=== PATIENT | male | born 1945 | race African-American/Black ===

== ENCOUNTER 2016-08-24 16:53 | Inpatient (IN) | payer OTHER ==
[~2016-08-24] VITALS: Ht 170.2 cm; Wt 65.1 kg
[2016-08-24 20:08] LABS: BASO % 1 % (0-3); EOS % 0 % (0-3); LYMPH % 22 % (24-48); MEAN CORPUSCULAR HEMOGLOBIN 26 pg (25-35); MEAN CORPUSCULAR HGB CONC 32 g/dL (31-37); MEAN CORPUSCULAR VOLUME 83 fL (79-100); MONO % 11 % (0-9); NEUT % 67 % (31-73); PLATELET COUNT 263 x10^3/uL (140-400); WHITE BLOOD COUNT 4.6 x10^3/uL (4.0-11.0)
[2016-08-24 20:15] LABS: HEMATOCRIT 16.6 % (39.0-53.0); HEMOGLOBIN 5.3 g/dL (13.0-17.5)
[2016-08-24 20:19] LABS: CALCIUM 8.3 mg/dL (8.5-10.1); CREATININE 8.2 mg/dL (0.7-1.3); GFR 7.8; POTASSIUM 3.7 mmol/L (3.5-5.1)
[2016-08-24 20:33] LABS: NEG OBC FOB NEG; POS OBC FOB POS
--- NOTE | 2016-08-24 20:38 | PHYS DOC ---
Past Medical History Past Medical History: CVA, Diabetes-Type II, Hypothyroid, Stroke Additional Past Medical Histor: ESRD on HD Past Surgical History: Other Additional Past Surgical Histo: HD PORT PLACEMENT, L ARM HD SHUNT Additional Information: 1 PACK PER DAY Alcohol Use: None Drug Use: None Adult General Chief Complaint Chief Complaint: ABNORMAL LABS HPI HPI Patient is a 71 year old male who presents for evaluation of low hemoglobin of 5.3. He had dialysis yesterday with routine lab draw and was called today. He notes in the past few days he has mild generalized fatigue and dyspnea on exertion. He denies lightheadedness, chest pain, abdominal pain, dysuria, hematuria, rectal bleeding, dark stools, nausea or vomiting, fever or chills, rash, bruising or bleeding. Review of Systems Review of Systems Constitutional: Denies fever or chills [] Eyes: Denies change in visual acuity, redness, or eye pain [] HENT: Denies nasal congestion or sore throat [] Respiratory: Denies cough or shortness of breath [] Cardiovascular: No additional information not addressed in HPI [] GI: Denies abdominal pain, nausea, vomiting, bloody stools or diarrhea [] : Denies dysuria or hematuria [] Musculoskeletal: Denies back pain or joint pain [] Integument: Denies rash or skin lesions [] Neurologic: Denies headache, focal weakness or sensory changes [] Endocrine: Denies polyuria or polydipsia [] Allergies Allergies Allergies Coded Allergies Type Severity Reaction Last Updated Verified No Known Drug Allergies 08/24/16 No Physical Exam Physical Exam Constitutional: Well developed, well nourished, no acute distress, non-toxic appearance. [] HENT: Normocephalic, atraumatic, bilateral external ears normal, oropharynx moist, no oral exudates, nose normal. [] Eyes: PERRLA, EOMI. [] Neck: Normal range of motion, supple. [] Cardiovascular:Heart rate regular rhythm [] Lungs & Thorax: Bilateral breath sounds clear to auscultation. Hemodialysis catheter to right upper chest with no signs of bleeding [] Abdomen: Bowel sounds normal, soft, no tenderness. Rectal exam with brown stool in vault [] Skin: Warm, dry, no erythema, no rash. [] Back: Normal range of motion. [] Extremities: No tenderness, ROM intact, no edema. Right upper extremity graft active [] Neurologic: Alert and oriented X 3, normal motor function, normal sensory function, no focal deficits noted. [] Psychologic: Affect normal, judgement normal, mood normal. [] Current Patient Data Vital Signs Vital Signs Date Time Temp Pulse Resp B/P Pulse Ox O2 Delivery O2 Flow Rate FiO2 08/24/16 18:51 98.5 100 21 141/65 96 Room Air 98.5 Lab Values Laboratory Tests Test 08/24/16 19:59 White Blood Count 4.6x10^3/uL (4.0-11.0) Red Blood Count 2.00x10^6/uL (4.30-5.70) L Hemoglobin 5.3g/dL (13.0-17.5) *L Hematocrit 16.6% (39.0-53.0) *L Mean Corpuscular Volume 83fL (79-100) Mean Corpuscular Hemoglobin 26pg (25-35) Mean Corpuscular Hemoglobin Concent 32g/dL (31-37) Red Cell Distribution Width 18.0% (11.5-14.5) H Platelet Count 263x10^3/uL (140-400) Neutrophils (%) (Auto) 67% (31-73) Lymphocytes (%) (Auto) 22% (24-48) L Monocytes (%) (Auto) 11% (0-9) H Eosinophils (%) (Auto) 0% (0-3) Basophils (%) (Auto) 1% (0-3) Neutrophils # (Auto) 3.1x10^3uL (1.8-7.7) Lymphocytes # (Auto) 1.0x10^3/uL (1.0-4.8) Monocytes # (Auto) 0.5x10^3/uL (0.0-1.1) Eosinophils # (Auto) 0.0x10^3/uL (0.0-0.7) Basophils # (Auto) 0.0x10^3/uL (0.0-0.2) Sodium Level 139mmol/L (136-145) Potassium Level 3.7mmol/L (3.5-5.1) Chloride Level 100mmol/L (98-107) Carbon Dioxide Level 30mmol/L (21-32) Anion Gap 9 (6-14) Blood Urea Nitrogen 28mg/dL (8-26) H Creatinine 8.2mg/dL (0.7-1.3) H Estimated GFR (Cockcroft-Gault) 7.8 Glucose Level 281mg/dL (70-99) H Calcium Level 8.3mg/dL (8.5-10.1) L Laboratory Tests 08/24/16 19:59 Laboratory Tests 08/24/16 19:59 Course & Med Decision Making Course & Med Decision Making Pertinent Labs and Imaging studies reviewed. (See chart for details) He has symptomatic anemia and will be admitted for blood transfusion. Discussed case with Dr. Olsen, for Dr. Villa, who agrees to admit. Discussed case with Dr. Tripp, nephrology, who agrees with transfusion. Dragon Disclaimer Dragon Disclaimer This electronic medical record was generated, in whole or in part, using a voice recognition dictation system. Departure Departure Impression: Primary Impression: Anemia Additional Impression: ESRD (end stage renal disease) on dialysis Disposition: ADMITTED INPATIENT Condition: STABLE Referrals: GILSON VILLA (PCP) Problem Qualifiers Primary Impression: Anemia Anemia type: unspecified type Qualified Code: D64.9 - Anemia, unspecified Gloria HDZ MD Aug 24, 2016 20:38
[2016-08-24] MEDS ORDERED: ACETAMINOPHEN 325 MG TABLET. PO PRN (20:45)
[2016-08-24] MEDS ORDERED: ONDANSETRON PF 4 MG/2 ML VIAL. IV PRN (20:45)
[2016-08-24] MEDS ORDERED: FUROSEMIDE 20 MG/2 ML VIAL IVP ONE (21:00)
--- NOTE | 2016-08-24 21:18 | ACF ---
Admission Forms Criteria ANEMIA, IRON DEFICIENCY OR UNSPECIFIED Clinical Indications for Inpatient Care (Place 'X' for any and all applicable criteria): Admission is indicated for ANY ONE of the following(1)(2)(3)(4)(5)(6)(7): [X] I. Inpatient admission required rather than observation care (Also use Anemia, Iron Deficiency or Unspecified: Observation Care guideline as appropriate) because of ANY ONE of the following: [] a) Hemodynamic instability that is severe or persistent [] b) Active bleeding that cannot be rapidly controlled [] c) CVS symptoms (i.e., dyspnea, chest pain, heart failure) that are severe or persistent [] d) Neurologic symptoms (i.e., cognitive impairment, recurrent syncope or near syncope) that are severe or persistent [] e) Cardiac arrhythmias of immediate concern [] f) Acute peripheral ischemia (e.g., pulseless, cool, mottled, or cyanotic extremity) [] g) High-risk low platelet count [] h) Acute renal failure [] i) Ongoing transfusion for blood loss (greater than 2 units) [] j) IV fluid to replace significant ongoing (eg, >24 hours) losses (> 3 L/m2 per day) [] k) Pulmonary artery catheter monitoring [] l) Supplemental oxygen or respiratory treatments for over 24 hours that are performable only in acute inpatient setting [] m) Immediate inpatient surgery [X] n) Other condition, treatment or monitoring requiring inpatient admission [] II Active massive hemorrhage [] III. Active hemolysis with rapidly progressive anemia [A](6) Extended stay beyond goal length of stay may be needed for (17)(18) []a) Diagnosed cause of anemia requiring longer hospitalization (eg, active GI bleeding, immune hemolysis requiring electrophoresis, complications of malignancy requiring acute care []b) Continued emergent anemia indicators (23) []c) Transfusion reactions []d) Associated leukopenia or thrombocytopenia needing inpatient care []e) Active comorbidities (eg, renal failure, heart failure) The original [employer] [facility] Care Guidelines content created by [employer] has been revised. The portions of the content which have been revised are identified through the use of italic text or in bold. [facility] Guidelines has neither reviewed nor approved the modified material. All other unmodified content is copyright [employer] Care Guidelines. Please see references footnoted in the original [facility] edition 2016 Admission Criteria Met?: Yes GALINDO HUTSON Aug 24, 2016 21:18
[2016-08-24 23:00] VITALS: BP 133/58
[2016-08-24 23:50] VITALS: BP 133/58
[2016-08-25] VITALS (12 sets, daily range): BP systolic 106–134; BP diastolic 38–62
[2016-08-25] MEDS ORDERED: LEVO125T5 PO (01:51)
[2016-08-25] MEDS ORDERED: CINA30TA MT (10:52)
[2016-08-25] MEDS ORDERED: HYDR25TA9 MT (10:52)
--- NOTE | 2016-08-25 11:01 | PDOC1 ---
REBECCA HUERTA AREA CLEANER 08/25/16 1101: HISTORY AND PHYSICAL Chief Complaint Chief Complaint This 71 year old male has been admitted with a chief complaint of anemia. He was contacted by Dr. Francis's office to proceed to the [facility] ED for Hgb 5.3. In the ED his Hgb was 5.3 and he was asymptomatic. Stool for OB was negative. His baseline Hgb is ~10. He is admitted and to receive 2 units PRC. Hematology and nephrology has been consulted. spoke to Dr. Olsen w/o present and reported Rk's memory is getting worse. Problem List Problems Medical Problems: (1) Anemia Status: Acute (2) ESRD (end stage renal disease) on dialysis Status: Acute Past Medical History Cardiovascular: HTN, Hyperlipidemia CENTRAL NERVOUS SYSTEM: CVA (on Plavix ) Heme/Onc: Anemia NOS (chronic renal failure ) Renal/: Chronic renal failure (ESRD -HD 3 times weekly ) Endocrine: Diabetes (type II insulin controlled. ), Hypothyroidism, Hyperparathyroidism (secondary ) Past Surgical History PSH temp HD R chest, AV fistula LA Past Family History PFH non contributory Past Social History PSH , + tobacco current, no h/o ETOH or illicit drug use Review of Symptoms Review of Symptoms A 14 point ROS was completed with the following noted as positive: Other systems reviewed and negative. Medications Reviewed and reconciled at admission Allergy Allergies Coded Allergies Type Severity Reaction Last Updated Verified No Known Drug Allergies 08/24/16 No Physical Exam Physical Exam General appearance - alert,well appearing, and in no distress Mental Status - alert, oriented to person, place, and time, affect appropriate to mood Head - normal Chest - clear to auscultation, no wheezes, rales or rhonchi, temporary Dx cath R chest Heart - S1 and S2 normal Abdomen - soft, nontender, nondistended, BS+ Neurological - no acute focal neurological deficit noted Musculoskeletal - no muscular tenderness noted Extremities - no pedal edema, AV fistula LFA Skin - warm and dry VTE Prophylaxis Ordered VTE Prophylaxis Devices: Yes VTE Pharmacological Prophylaxi: No Assessment Labs Laboratory Tests Test 08/24/16 19:59 08/24/16 20:25 08/24/16 21:49 08/25/16 07:40 White Blood Count 4.6x10^3/uL (4.0-11.0) Red Blood Count 2.00x10^6/uL (4.30-5.70) Hemoglobin 5.3g/dL (13.0-17.5) Hematocrit 16.6% (39.0-53.0) Mean Corpuscular Volume 83fL (79-100) Mean Corpuscular Hemoglobin 26pg (25-35) Mean Corpuscular Hemoglobin Concent 32g/dL (31-37) Red Cell Distribution Width 18.0% (11.5-14.5) Platelet Count 263x10^3/uL (140-400) Neutrophils (%) (Auto) 67% (31-73) Lymphocytes (%) (Auto) 22% (24-48) Monocytes (%) (Auto) 11% (0-9) Eosinophils (%) (Auto) 0% (0-3) Basophils (%) (Auto) 1% (0-3) Neutrophils # (Auto) 3.1x10^3uL (1.8-7.7) Lymphocytes # (Auto) 1.0x10^3/uL (1.0-4.8) Monocytes # (Auto) 0.5x10^3/uL (0.0-1.1) Eosinophils # (Auto) 0.0x10^3/uL (0.0-0.7) Basophils # (Auto) 0.0x10^3/uL (0.0-0.2) Sodium Level 139mmol/L (136-145) Potassium Level 3.7mmol/L (3.5-5.1) Chloride Level 100mmol/L (98-107) Carbon Dioxide Level 30mmol/L (21-32) Anion Gap 9 (6-14) Blood Urea Nitrogen 28mg/dL (8-26) Creatinine 8.2mg/dL (0.7-1.3) Estimated GFR (Cockcroft-Gault) 7.8 Glucose Level 281mg/dL (70-99) Calcium Level 8.3mg/dL (8.5-10.1) Stool Occult Blood Negative (NEG) Glucose (Fingerstick) 212mg/dL (70-99) 253mg/dL (70-99) Laboratory Tests Test 08/24/16 19:59 08/24/16 20:25 08/24/16 21:49 08/25/16 07:40 White Blood Count 4.6x10^3/uL (4.0-11.0) Red Blood Count 2.00x10^6/uL (4.30-5.70) Hemoglobin 5.3g/dL (13.0-17.5) Hematocrit 16.6% (39.0-53.0) Mean Corpuscular Volume 83fL (79-100) Mean Corpuscular Hemoglobin 26pg (25-35) Mean Corpuscular Hemoglobin Concent 32g/dL (31-37) Red Cell Distribution Width 18.0% (11.5-14.5) Platelet Count 263x10^3/uL (140-400) Neutrophils (%) (Auto) 67% (31-73) Lymphocytes (%) (Auto) 22% (24-48) Monocytes (%) (Auto) 11% (0-9) Eosinophils (%) (Auto) 0% (0-3) Basophils (%) (Auto) 1% (0-3) Neutrophils # (Auto) 3.1x10^3uL (1.8-7.7) Lymphocytes # (Auto) 1.0x10^3/uL (1.0-4.8) Monocytes # (Auto) 0.5x10^3/uL (0.0-1.1) Eosinophils # (Auto) 0.0x10^3/uL (0.0-0.7) Basophils # (Auto) 0.0x10^3/uL (0.0-0.2) Sodium Level 139mmol/L (136-145) Potassium Level 3.7mmol/L (3.5-5.1) Chloride Level 100mmol/L (98-107) Carbon Dioxide Level 30mmol/L (21-32) Anion Gap 9 (6-14) Blood Urea Nitrogen 28mg/dL (8-26) Creatinine 8.2mg/dL (0.7-1.3) Estimated GFR (Cockcroft-Gault) 7.8 Glucose Level 281mg/dL (70-99) Calcium Level 8.3mg/dL (8.5-10.1) Stool Occult Blood Negative (NEG) Glucose (Fingerstick) 212mg/dL (70-99) 253mg/dL (70-99) Plan Plan IMPRESSION: 1. acute anemia 2. ESRD on HD 3. HTN 4. h/o CVA on Plavix 5. hypothyroid 6. 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 moderate chronic PCL malnutrition PLAN: acute anemia transfuse 2 unit PRC, 20mg Lasix between Admit Hgb 5.3 consult hematology memory -r/t ?anemia ESRD continue HD inpatient consult nephrology DM II does not take doses of insulin ordered by Dr. Bernard regularly, he adjust it based on his BS readings FSBS/SSI BS [id number] insulin since yesterday early Levemir 16u at hs with order to allow patient to decrease dose based on BS Novolog SSI with order to allow patient to decrease dose based on BS HTN continue home meds NSVT 3 beat VT resolved spont occasional PVC DVT/GI prophylaxis KEL ambulatory in room without assistance PPI For more details regarding further plans, please refer to the orders. RENY OLSEN MD 08/25/16 1120: HISTORY AND PHYSICAL Plan Plan The patient was seen and examined by me. Chart reviewed and plan of care formulated. 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 For more details regarding further plans, please refer to the orders. D/w patient and extensively. Patient's memory is getting worse for quite sometime. Check CT Head. REBECCA HUERTA APRN Aug 25, 2016 11:01 RENY OLSEN MD Aug 25, 2016 11:20
[2016-08-25] MEDS ORDERED: FOLI0.8T21 MT (11:04)
[2016-08-25] MEDS ORDERED: CLOP75TA MT (11:04)
[2016-08-25] MEDS ORDERED: AMLO10TA2 MT (11:04)
[2016-08-25] MEDS ORDERED: SEVE800T9 MT (11:04)
[2016-08-25] MEDS ORDERED: PARI1CAP PO (11:09)
[2016-08-25] MEDS ORDERED: HYDR-2868 PO (11:09)
[2016-08-25] MEDS ORDERED: ASPI325T4 PO (11:09)
[2016-08-25] MEDS ORDERED: ATOR40TA59 PO (11:09)
[2016-08-25] MEDS ORDERED: INSU100V13 SQ (11:11)
[2016-08-25] MEDS ORDERED: INSU100C4 SQ (11:11)
[2016-08-25] MEDS ORDERED: INSULIN ASPART 300 UNITS/3 ML INSULN.PEN SQ SCH (11:30)
[2016-08-25] MEDS: SEVELAMER CARBONATE 800 MG TABLET. PO SCH ×2 (12:00→19:32)
[2016-08-25] MEDS ORDERED: ASPIRIN 325 MG TABLET PO SCH ×2 (12:00→21:00)
[2016-08-25] MEDS: HYDROCHLOROTHIAZIDE 25 MG TABLET PO SCH (12:00)
[2016-08-25] MEDS: NICOTINE 21MG PATCH. TD SCH (12:00)
[2016-08-25] MEDS: FOLIC/VIT B COMP W-C (RENAL) TABLET. PO SCH (12:07)
[2016-08-25] MEDS: HYDRALAZINE 25 MG TABLET PO SCH ×2 (12:07→19:32)
[2016-08-25] MEDS: LEVOTHYROXINE 125 MCG TABLET PO SCH (12:08)
[2016-08-25] MEDS: FAMOTIDINE 20 MG TABLET. PO SCH (12:08)
[2016-08-25] MEDS: INSULIN ASPART 300 UNITS/3 ML INSULN.PEN SQ SCH ×2 (12:16→16:30)
[2016-08-25] MEDS ORDERED: INSULIN ASPART 300 UNITS/3 ML INSULN.PEN SQ ONE (13:00)
--- NOTE | 2016-08-25 13:01 | PDOC2 ---
CONSULT Date of Consult Date of Consult DATE: 08/25/16 TIME: 12:54 Reason for Consult Reason for Consult: Anemia Referring Physician Referring Physician: Dr. Olsen History of Present Illness Reason for Visit: 71 yo male with ESRD on HD he was told when he had labs on that he hgb was down to 5.3. He then presented to the hospital. He denies any major complaints except a little fatigue. He states that after his transfusion, he feels more energized. He denies any bleeding from mouth gums, no blood in stool or dark and tarry stool, and no blood in his urine. He also denies any significant NSAID use except full asa daily. He was hemoccult negative in the ED. Past Medical History Cardiovascular: HTN, Hyperlipidemia CENTRAL NERVOUS SYSTEM: CVA (on Plavix ) Heme/Onc: Anemia NOS (chronic renal failure ) Renal/: Chronic renal failure (ESRD -HD 3 times weekly ) Endocrine: Diabetes (type II insulin controlled. ), Hypothyroidism, Hyperparathyroidism (secondary ) Family History Family History No history of cancers in the family Social History Social History He still smokes 1/2 pack per day. No etoh abuse Current Problem List Problem List Problems Medical Problems: (1) Anemia Status: Acute (2) ESRD (end stage renal disease) on dialysis Status: Acute Current Medications Current Medications Current Medications Ondansetron HCl (Zofran) 4 mg PRN Q8HRS PRN IV NAUSEA/VOMITING; Start 08/24/16 at 20:45; Stop 08/25/16 at 20:44 Acetaminophen (Tylenol) 650 mg PRN Q4HRS PRN PO FEVER; Start 08/24/16 at 20:45 ; Stop 08/25/16 at 20:44 Furosemide (Lasix) 20 mg 1X ONCE IVP Last administered on 08/25/16 02:26; Start 08/24/16 at 21:00; Stop 08/24/16 at 21:01; Status DC Levothyroxine Sodium (Synthroid) 125 mcg DAILY PO Last administered on 12:08; Start 08/25/16 at 11:00 Insulin Aspart (Novolog) Adjust SSI dose to ansley... TIDAC SQ ; Start 08/25/16 at 11:30; Stop 08/25/16 at 11:30; Status DC Insulin Detemir (Levemir) 16 units QHS SQ ; Start 08/25/16 at 21:00 Insulin Aspart (Novolog) See Protocol TIDAC SQ Last administered on 08/25/16 12:16; Start 08/25/16 at 11:30 Aspirin (Shana Aspirin) 325 mg DAILY PO ; Start 08/25/16 at 12:00 Atorvastatin Calcium (Lipitor) 40 mg HS PO ; Start 08/25/16 at 21:00 Folic Acid/ Multivitamins/Vit B12 (Nephro-Curry) 1 tab DAILY PO Last administered on 08/25/16 12:07; Start 08/25/16 at 12:00 Hydralazine HCl (Apresoline) 25 mg TIDWMEALS PO Last administered on 08/25/16 12:07; Start 08/25/16 at 12:00 Hydrochlorothiazide (Hydrodiuril) 25 mg DAILY PO ; Start 08/25/16 at 12:00 Sevelamer Carbonate (Renvela) 800 mg TIDWMEALS PO ; Start 08/25/16 at 12:00 Cinacalcet (Sensipar) 30 mg DAILYWSUP PO ; Start 08/25/16 at 17:00 Paricalcitol (Zemplar) 1 mcg 3X/WEEK PO ; Start 08/27/16 at 09:00 Famotidine (Pepcid) 20 mg DAILY PO Last administered on 08/25/16 12:08; Start 08/25/16 at 12:00 Nicotine (Nicoderm Cq 21mg) 1 patch DAILY TD ; Start 08/25/16 at 12:00 Insulin Aspart (Novolog) 4 units 1X ONCE SQ ; Start 08/25/16 at 13:00; Stop at 13:01 Active Scripts Active Reported Novolog (Insulin Aspart) 100 Unit/1 Ml Cartridge 100 Unit SQ TIDBFRMEAL Levemir (Insulin Detemir) 100 Unit/1 Ml Vial 16 Unit SQ HS Zemplar (Paricalcitol) 1 Mcg Capsule 1 Mcg PO 3X/WEEK Hydralazine Hcl 25 Mg Tablet 25 Mg PO TIDWMEALS Atorvastatin Calcium 40 Mg Tablet 40 Mg PO HS Aspirin 325 Mg Tablet 325 Mg PO DAILY Marion-Curry Tablet (Folic Acid/Vitamin B Comp W-C) 0.8 Mg Tablet 1 Tab MT DAILY Clopidogrel (Clopidogrel Bisulfate) 75 Mg Tablet 1 Tab MT DAILY Renvela (Sevelamer Carbonate) 800 Mg Tablet 1 Tab MT TIDWMEALS Amlodipine Besylate 10 Mg Tablet 1 Tab MT DAILY Hydrochlorothiazide Tablet (Hydrochlorothiazide) 25 Mg Tablet 1 Tab MT DAILY Sensipar (Cinacalcet Hcl) 30 Mg Tablet 1 Tab MT DAILYWSUP Levothyroxine Sodium 125 Mcg Tablet 125 Mcg PO DAILY Allergies Allergies: Coded Allergies: No Known Drug Allergies (Unverified , 08/24/16) ROS General: No: Appetite, Chills, Fatigue, Malaise, Night Sweats, Other PSYCHOLOGICAL ROS: No: Anxiety, Behavioral Disorder, Concentration difficultie , Decreased libido, Depression, Disorientation, Hallucinations, Hostility, Irritablity, Memory difficulties, Mood Swings, Obsessive thoughts, Other, Physical abuse, Sexual abuse, Sleep disturbances, Suicidal ideation Eyes: No Blurry vision, No Decreased vision, No Double vision, No Dry eyes, No Excessive tearing, No Eye Pain, No Itchy Eyes, No Loss of vision, No Other, No Photophobia, No Scotomata, No Uses contacts, No Uses glasses HEENT: No: Epistaxis, Heacaches, Hearing change, Nasal congestion, Nasal discharge, Oral lesions, Other, Sinus pain, Sneezing, Snoring, Sore Throat, Tinnitus, Vertigo, Visual Changes, Vocal changes ALLERGY AND IMMUNOLOGY: No: Hives, Insect Bite Sensitivity, Itchy/Watery Eyes, Nasal Congestion, Other, Post Nasal Drip, Seasonal Allergies Hematological and Lymphatic: YES: Blood Transfusions, No: Bleeding Problems, Blood Clots, Brusing, Night Sweats, Other, Pallor, Swollen Lymph Nodes ENDOCRINE: No: Breast Changes, Galactorrhea, Hair Pattern Changes, Hot Flashes , Malaise/lethargy, Mood Swings, Other, Palpitations, Polydipsia/polyuria, Skin Changes, Temperature Intolerance, Unexpected Weight Changes Breast: No New/Changing Breast Lumps, No Nipple changes, No Nipple discharge, No Other Respiratory: No: Cough, Hemoptysis, Orthopnea, Other, Pleuritic Pain, SOB with excertion, Shortness of breath, Sputum Changes, Stridor, Tachypnea, Wheezing Cardiovascular: No Chest Pain, No Edema, No Lt Headedness, No Orthopnea, No Other, No Palpitations, No Paroxysmal Noc. Dyspnea Gastrointestinal: No Abdominal Pain, No Constipation, No Diarrhea, No Hematochezia, No Melena, No Nausea, No Other, No Vomiting Genitourinary: No , No , No , No , No , No , No , No Discharge, No Dysuria, No Flank Pain, No Frequency, No Hematuria, No Incontinence, No Other, No Pain, No Retention, No Urgency Musculoskeletal: No Gait Disturbance, No Joint Pain, No Joint Stiffness, No Joint Swelling, No Muscle Pain, No Muscular Weakness, No Other, No Pain In:, No Swelling In: Neurological: No Behavorial Changes, No Bowel/Bladder ControlChng, No Confusion , No Dizziness, No Gait Disturbance, No Headaches, No Impaired Coord/balance, No Memory Loss, No Numbness/Tingling, No Other, No Seizures, No Speech Problems , No Tremors, No Visual Changes, No Weakness Physical Exam General: Alert, Oriented X3, Cooperative HEENT: PERRLA Lungs: Clear to auscultation, Normal air movement Heart: Regular rate, Normal S1, Normal S2 Abdomen: Normal bowel sounds, Soft Neuro: Normal gait Psych/Mental Status: Mental status NL Vitals VITALS Vital Signs Date Time Temp Pulse Resp B/P Pulse Ox O2 Delivery O2 Flow Rate FiO2 08/25/16 12:07 97 132/53 08/25/16 10:50 97.8 18 100 Room Air 97.8 Labs Labs Laboratory Tests Test 08/24/16 19:59 08/24/16 20:25 08/24/16 21:49 08/25/16 07:40 White Blood Count 4.6x10^3/uL (4.0-11.0) Red Blood Count 2.00x10^6/uL (4.30-5.70) Hemoglobin 5.3g/dL (13.0-17.5) Hematocrit 16.6% (39.0-53.0) Mean Corpuscular Volume 83fL (79-100) Mean Corpuscular Hemoglobin 26pg (25-35) Mean Corpuscular Hemoglobin Concent 32g/dL (31-37) Red Cell Distribution Width 18.0% (11.5-14.5) Platelet Count 263x10^3/uL (140-400) Neutrophils (%) (Auto) 67% (31-73) Lymphocytes (%) (Auto) 22% (24-48) Monocytes (%) (Auto) 11% (0-9) Eosinophils (%) (Auto) 0% (0-3) Basophils (%) (Auto) 1% (0-3) Neutrophils # (Auto) 3.1x10^3uL (1.8-7.7) Lymphocytes # (Auto) 1.0x10^3/uL (1.0-4.8) Monocytes # (Auto) 0.5x10^3/uL (0.0-1.1) Eosinophils # (Auto) 0.0x10^3/uL (0.0-0.7) Basophils # (Auto) 0.0x10^3/uL (0.0-0.2) Sodium Level 139mmol/L (136-145) Potassium Level 3.7mmol/L (3.5-5.1) Chloride Level 100mmol/L (98-107) Carbon Dioxide Level 30mmol/L (21-32) Anion Gap 9 (6-14) Blood Urea Nitrogen 28mg/dL (8-26) Creatinine 8.2mg/dL (0.7-1.3) Estimated GFR (Cockcroft-Gault) 7.8 Glucose Level 281mg/dL (70-99) Calcium Level 8.3mg/dL (8.5-10.1) Stool Occult Blood Negative (NEG) Glucose (Fingerstick) 212mg/dL (70-99) 253mg/dL (70-99) Test 08/25/16 11:17 08/25/16 12:37 Glucose (Fingerstick) 300mg/dL (70-99) 338mg/dL (70-99) Laboratory Tests Test 08/24/16 19:59 08/24/16 20:25 08/24/16 21:49 08/25/16 07:40 White Blood Count 4.6x10^3/uL (4.0-11.0) Red Blood Count 2.00x10^6/uL (4.30-5.70) Hemoglobin 5.3g/dL (13.0-17.5) Hematocrit 16.6% (39.0-53.0) Mean Corpuscular Volume 83fL (79-100) Mean Corpuscular Hemoglobin 26pg (25-35) Mean Corpuscular Hemoglobin Concent 32g/dL (31-37) Red Cell Distribution Width 18.0% (11.5-14.5) Platelet Count 263x10^3/uL (140-400) Neutrophils (%) (Auto) 67% (31-73) Lymphocytes (%) (Auto) 22% (24-48) Monocytes (%) (Auto) 11% (0-9) Eosinophils (%) (Auto) 0% (0-3) Basophils (%) (Auto) 1% (0-3) Neutrophils # (Auto) 3.1x10^3uL (1.8-7.7) Lymphocytes # (Auto) 1.0x10^3/uL (1.0-4.8) Monocytes # (Auto) 0.5x10^3/uL (0.0-1.1) Eosinophils # (Auto) 0.0x10^3/uL (0.0-0.7) Basophils # (Auto) 0.0x10^3/uL (0.0-0.2) Sodium Level 139mmol/L (136-145) Potassium Level 3.7mmol/L (3.5-5.1) Chloride Level 100mmol/L (98-107) Carbon Dioxide Level 30mmol/L (21-32) Anion Gap 9 (6-14) Blood Urea Nitrogen 28mg/dL (8-26) Creatinine 8.2mg/dL (0.7-1.3) Estimated GFR (Cockcroft-Gault) 7.8 Glucose Level 281mg/dL (70-99) Calcium Level 8.3mg/dL (8.5-10.1) Stool Occult Blood Negative (NEG) Glucose (Fingerstick) 212mg/dL (70-99) 253mg/dL (70-99) Test 08/25/16 11:17 08/25/16 12:37 Glucose (Fingerstick) 300mg/dL (70-99) 338mg/dL (70-99) Assessment/Plan Assessment/Plan 71 yo male with ESRD on HD who states that his baseline hgb is 10 was found to have a hgb of 5.3. He has received 2 units of PRBC 1. Anemia. Hemoccult negative would check iron studies, b12, folic acid retic count and erythropoietin level. Given ESRD would also check spep. He has not had a repeat cbc after transfusion and we should repeat this 2. ESRD. HD as per nephrology GERALDO FERNANDEZ MD Aug 25, 2016 13:01
--- NOTE | 2016-08-25 13:37 | RAD ---
CT of the head without contrast, 08/25/2016: History: Memory loss, previous stroke No previous head scans are available at this time for comparison purposes. There is mild cerebral atrophy. There are mild patchy lucencies in the deep white matter bilaterally compatible with chronic ischemic change. The ventricles are within normal limits in size. There is no shift of the midline structures. There is no evidence of acute intracranial hemorrhage or mass effect. There is a tiny lucency along the lateral aspect of the left basal ganglia which probably represents a prominent perivascular space. An old lacunar infarct also give this appearance. A small lucency in the posterior aspect of the right cerebellar hemisphere is likely due to an old infarct. There is calcific plaquing of the distal internal carotid and vertebral arteries. IMPRESSION: 1. Mild bilateral deep white matter lucencies compatible with chronic ischemic change. 2. Additional chronic findings as described above. 3. No acute intracranial abnormality is detected. PQRS Compliance Statement: One or more of the following individualized dose reduction techniques were utilized for this examination: 1. Automated exposure control 2. Adjustment of the mA and/or kV according to patient size 3. Use of iterative reconstruction technique
[2016-08-25 14:18] LABS: BASO % 0 % (0-3); EOS % 0 % (0-3); HEMATOCRIT 22.2 % (39.0-53.0); LYMPH # 0.9 x10^3/uL (1.0-4.8); LYMPH % 15 % (24-48); MEAN CORPUSCULAR HEMOGLOBIN 27 pg (25-35); MEAN CORPUSCULAR HGB CONC 32 g/dL (31-37); MEAN CORPUSCULAR VOLUME 85 fL (79-100); MONO % 6 % (0-9); NEUT % 78 % (31-73); PLATELET COUNT 291 x10^3/uL (140-400); RED CELL DISTRIBUTION WIDTH 17.9 % (11.5-14.5); WHITE BLOOD COUNT 5.7 x10^3/uL (4.0-11.0)
[2016-08-25 14:25] LABS: RETIC COUNT 1.4 % (0.5-2.5)
--- NOTE | 2016-08-25 14:28 | PDOC2 ---
CONSULT Date of Consult Date of Consult DATE: 08/25/16 TIME: 14:27 Past Medical History Cardiovascular: HTN, Hyperlipidemia CENTRAL NERVOUS SYSTEM: CVA (on Plavix ) Heme/Onc: Anemia NOS (chronic renal failure ) Renal/: Chronic renal failure (ESRD -HD 3 times weekly ) Endocrine: Diabetes (type II insulin controlled. ), Hypothyroidism, Hyperparathyroidism (secondary ) Current Problem List Problem List Problems Medical Problems: (1) Anemia Status: Acute (2) ESRD (end stage renal disease) on dialysis Status: Acute Current Medications Current Medications Current Medications Ondansetron HCl (Zofran) 4 mg PRN Q8HRS PRN IV NAUSEA/VOMITING; Start 08/24/16 at 20:45; Stop 08/25/16 at 20:44 Acetaminophen (Tylenol) 650 mg PRN Q4HRS PRN PO FEVER; Start 08/24/16 at 20:45 ; Stop 08/25/16 at 20:44 Furosemide (Lasix) 20 mg 1X ONCE IVP Last administered on 08/25/16 02:26; Start 08/24/16 at 21:00; Stop 08/24/16 at 21:01; Status DC Levothyroxine Sodium (Synthroid) 125 mcg DAILY PO Last administered on 12:08; Start 08/25/16 at 11:00 Insulin Aspart (Novolog) Adjust SSI dose to ansley... TIDAC SQ ; Start 08/25/16 at 11:30; Stop 08/25/16 at 11:30; Status DC Insulin Detemir (Levemir) 16 units QHS SQ ; Start 08/25/16 at 21:00 Insulin Aspart (Novolog) See Protocol TIDAC SQ Last administered on 08/25/16 12:16; Start 08/25/16 at 11:30 Aspirin (Shana Aspirin) 325 mg DAILY PO ; Start 08/25/16 at 12:00 Atorvastatin Calcium (Lipitor) 40 mg HS PO ; Start 08/25/16 at 21:00 Folic Acid/ Multivitamins/Vit B12 (Nephro-Curry) 1 tab DAILY PO Last administered on 08/25/16 12:07; Start 08/25/16 at 12:00 Hydralazine HCl (Apresoline) 25 mg TIDWMEALS PO Last administered on 1/21/17at 12:07; Start 08/25/16 at 12:00 Hydrochlorothiazide (Hydrodiuril) 25 mg DAILY PO ; Start 08/25/16 at 12:00 Sevelamer Carbonate (Renvela) 800 mg TIDWMEALS PO ; Start 08/25/16 at 12:00 Cinacalcet (Sensipar) 30 mg DAILYWSUP PO ; Start 08/25/16 at 17:00 Paricalcitol (Zemplar) 1 mcg 3X/WEEK PO ; Start 08/27/16 at 09:00 Famotidine (Pepcid) 20 mg DAILY PO Last administered on 08/25/16t 12:08; Start 08/25/16 at 12:00 Nicotine (Nicoderm Cq 21mg) 1 patch DAILY TD ; Start 08/25/16 at 12:00 Insulin Aspart (Novolog) 4 units 1X ONCE SQ Last administered on 08/25/16t 13: 08; Start 08/25/16 at 13:00; Stop 08/25/16 at 13:01; Status DC Active Scripts Active Reported Novolog (Insulin Aspart) 100 Unit/1 Ml Cartridge 100 Unit SQ TIDBFRMEAL Levemir (Insulin Detemir) 100 Unit/1 Ml Vial 16 Unit SQ HS Zemplar (Paricalcitol) 1 Mcg Capsule 1 Mcg PO 3X/WEEK Hydralazine Hcl 25 Mg Tablet 25 Mg PO TIDWMEALS Atorvastatin Calcium 40 Mg Tablet 40 Mg PO HS Aspirin 325 Mg Tablet 325 Mg PO DAILY Marion-Curry Tablet (Folic Acid/Vitamin B Comp W-C) 0.8 Mg Tablet 1 Tab MT DAILY Clopidogrel (Clopidogrel Bisulfate) 75 Mg Tablet 1 Tab MT DAILY Renvela (Sevelamer Carbonate) 800 Mg Tablet 1 Tab MT TIDWMEALS Amlodipine Besylate 10 Mg Tablet 1 Tab MT DAILY Hydrochlorothiazide Tablet (Hydrochlorothiazide) 25 Mg Tablet 1 Tab MT DAILY Sensipar (Cinacalcet Hcl) 30 Mg Tablet 1 Tab MT DAILYWSUP Levothyroxine Sodium 125 Mcg Tablet 125 Mcg PO DAILY Allergies Allergies: Coded Allergies: No Known Drug Allergies (Unverified , 08/24/16) Vitals VITALS Vital Signs Date Time Temp Pulse Resp B/P Pulse Ox O2 Delivery O2 Flow Rate FiO2 08/25/16 12:07 97 132/53 08/25/16 10:50 97.8 18 100 Room Air 97.8 Labs Labs Laboratory Tests Test 08/24/16 19:59 08/24/16 20:25 08/24/16 21:49 08/25/16 07:40 White Blood Count 4.6x10^3/uL (4.0-11.0) Red Blood Count 2.00x10^6/uL (4.30-5.70) Hemoglobin 5.3g/dL (13.0-17.5) Hematocrit 16.6% (39.0-53.0) Mean Corpuscular Volume 83fL (79-100) Mean Corpuscular Hemoglobin 26pg (25-35) Mean Corpuscular Hemoglobin Concent 32g/dL (31-37) Red Cell Distribution Width 18.0% (11.5-14.5) Platelet Count 263x10^3/uL (140-400) Neutrophils (%) (Auto) 67% (31-73) Lymphocytes (%) (Auto) 22% (24-48) Monocytes (%) (Auto) 11% (0-9) Eosinophils (%) (Auto) 0% (0-3) Basophils (%) (Auto) 1% (0-3) Neutrophils # (Auto) 3.1x10^3uL (1.8-7.7) Lymphocytes # (Auto) 1.0x10^3/uL (1.0-4.8) Monocytes # (Auto) 0.5x10^3/uL (0.0-1.1) Eosinophils # (Auto) 0.0x10^3/uL (0.0-0.7) Basophils # (Auto) 0.0x10^3/uL (0.0-0.2) Sodium Level 139mmol/L (136-145) Potassium Level 3.7mmol/L (3.5-5.1) Chloride Level 100mmol/L (98-107) Carbon Dioxide Level 30mmol/L (21-32) Anion Gap 9 (6-14) Blood Urea Nitrogen 28mg/dL (8-26) Creatinine 8.2mg/dL (0.7-1.3) Estimated GFR (Cockcroft-Gault) 7.8 Glucose Level 281mg/dL (70-99) Calcium Level 8.3mg/dL (8.5-10.1) Stool Occult Blood Negative (NEG) Glucose (Fingerstick) 212mg/dL (70-99) 253mg/dL (70-99) Test 08/25/16 11:17 08/25/16 12:37 08/25/16 14:05 Glucose (Fingerstick) 300mg/dL (70-99) 338mg/dL (70-99) White Blood Count 5.7x10^3/uL (4.0-11.0) Red Blood Count 2.60x10^6/uL (4.30-5.70) Hemoglobin 7.0g/dL (13.0-17.5) Hematocrit 22.2% (39.0-53.0) Mean Corpuscular Volume 85fL (79-100) Mean Corpuscular Hemoglobin 27pg (25-35) Mean Corpuscular Hemoglobin Concent 32g/dL (31-37) Red Cell Distribution Width 17.9% (11.5-14.5) Platelet Count 291x10^3/uL (140-400) Neutrophils (%) (Auto) 78% (31-73) Lymphocytes (%) (Auto) 15% (24-48) Monocytes (%) (Auto) 6% (0-9) Eosinophils (%) (Auto) 0% (0-3) Basophils (%) (Auto) 0% (0-3) Neutrophils # (Auto) 4.5x10^3uL (1.8-7.7) Lymphocytes # (Auto) 0.9x10^3/uL (1.0-4.8) Monocytes # (Auto) 0.4x10^3/uL (0.0-1.1) Eosinophils # (Auto) 0.0x10^3/uL (0.0-0.7) Basophils # (Auto) 0.0x10^3/uL (0.0-0.2) Reticulocyte Count (auto) 1.4% (0.5-2.5) Laboratory Tests Test 08/24/16 19:59 08/24/16 20:25 08/24/16 21:49 08/25/16 07:40 White Blood Count 4.6x10^3/uL (4.0-11.0) Red Blood Count 2.00x10^6/uL (4.30-5.70) Hemoglobin 5.3g/dL (13.0-17.5) Hematocrit 16.6% (39.0-53.0) Mean Corpuscular Volume 83fL (79-100) Mean Corpuscular Hemoglobin 26pg (25-35) Mean Corpuscular Hemoglobin Concent 32g/dL (31-37) Red Cell Distribution Width 18.0% (11.5-14.5) Platelet Count 263x10^3/uL (140-400) Neutrophils (%) (Auto) 67% (31-73) Lymphocytes (%) (Auto) 22% (24-48) Monocytes (%) (Auto) 11% (0-9) Eosinophils (%) (Auto) 0% (0-3) Basophils (%) (Auto) 1% (0-3) Neutrophils # (Auto) 3.1x10^3uL (1.8-7.7) Lymphocytes # (Auto) 1.0x10^3/uL (1.0-4.8) Monocytes # (Auto) 0.5x10^3/uL (0.0-1.1) Eosinophils # (Auto) 0.0x10^3/uL (0.0-0.7) Basophils # (Auto) 0.0x10^3/uL (0.0-0.2) Sodium Level 139mmol/L (136-145) Potassium Level 3.7mmol/L (3.5-5.1) Chloride Level 100mmol/L (98-107) Carbon Dioxide Level 30mmol/L (21-32) Anion Gap 9 (6-14) Blood Urea Nitrogen 28mg/dL (8-26) Creatinine 8.2mg/dL (0.7-1.3) Estimated GFR (Cockcroft-Gault) 7.8 Glucose Level 281mg/dL (70-99) Calcium Level 8.3mg/dL (8.5-10.1) Stool Occult Blood Negative (NEG) Glucose (Fingerstick) 212mg/dL (70-99) 253mg/dL (70-99) Test 08/25/16 11:17 08/25/16 12:37 08/25/16 14:05 Glucose (Fingerstick) 300mg/dL (70-99) 338mg/dL (70-99) White Blood Count 5.7x10^3/uL (4.0-11.0) Red Blood Count 2.60x10^6/uL (4.30-5.70) Hemoglobin 7.0g/dL (13.0-17.5) Hematocrit 22.2% (39.0-53.0) Mean Corpuscular Volume 85fL (79-100) Mean Corpuscular Hemoglobin 27pg (25-35) Mean Corpuscular Hemoglobin Concent 32g/dL (31-37) Red Cell Distribution Width 17.9% (11.5-14.5) Platelet Count 291x10^3/uL (140-400) Neutrophils (%) (Auto) 78% (31-73) Lymphocytes (%) (Auto) 15% (24-48) Monocytes (%) (Auto) 6% (0-9) Eosinophils (%) (Auto) 0% (0-3) Basophils (%) (Auto) 0% (0-3) Neutrophils # (Auto) 4.5x10^3uL (1.8-7.7) Lymphocytes # (Auto) 0.9x10^3/uL (1.0-4.8) Monocytes # (Auto) 0.4x10^3/uL (0.0-1.1) Eosinophils # (Auto) 0.0x10^3/uL (0.0-0.7) Basophils # (Auto) 0.0x10^3/uL (0.0-0.2) Reticulocyte Count (auto) 1.4% (0.5-2.5) Assessment/Plan Assessment/Plan RENAL CONSULT / ALIZE Dictated. # [id number] RICKI HERRMANN MD Aug 25, 2016 14:28
[2016-08-25 14:43] LABS: % SAT IRON 15 % (15-34); IRON,SERUM 41 ug/dL (65-175)
[2016-08-25] MEDS ORDERED: IV NORMAL SALINE 1000ML BAG 1,000 ML IV PRN ×2 (14:56)
[2016-08-25] MEDS ORDERED: DIALYSIS PATIENT. MC PRN ×2 (15:00)
[2016-08-25] MEDS ORDERED: 0.9 % SODIUM CHLORIDE 10 ML DISP.SYRIN. IV PRN ×2 (15:00)
[2016-08-25] MEDS ORDERED: CINACALCET HCL 30 MG TABLET PO SCH (17:00)
[2016-08-25 18:52] LABS: HEMATOCRIT 23.4 % (39.0-53.0); HEMOGLOBIN 7.7 g/dL (13.0-17.5)
[2016-08-25] MEDS ORDERED: ATORVASTATIN CALCIUM 40 MG TABLET. PO SCH (21:00)
[2016-08-25] MEDS ORDERED: INSULIN DETEMIR 300 UNITS/3 ML INSULN.PEN. SQ SCH (21:00)
--- NOTE | 2016-08-25 21:52 | CONS ---
DATE OF CONSULTATION: REASON FOR CONSULTATION: End-stage renal disease, need for dialysis. HISTORY OF PRESENT ILLNESS: The patient is a 71-year-old -[place] gentleman. Undergoes hemodialysis on Saturday, , Saturday at the [facility]. He is under the care of Dr. Frnacis in our office. Last dialysis was . Yesterday he got a call from the office stating that he needs to go to the Emergency Room because his hemoglobin is 5.3. The patient is unaware of any previous major issues with anemia. He is denying any chest pains. He is somewhat short of breath, but more so he has got issues with decreased exercise tolerance. He denies any hematemesis, hemoptysis, hematuria, or blood in the bowels. No dysphagia or odynophagia. No chest pains. No other related complaints. He is somewhat frustrated as to the cause of his anemia. He does have some memory issues that have been reported. PAST MEDICAL HISTORY: Significant for: 1. Hypertension. 2. Type 2 diabetes, for which he requires insulin, ____with nephropathy. 3. CKD secondary to hypertension and diabetes. 4. Anemia of chronic kidney failure. 5. Secondary hyperparathyroidism ____renal failure. 6. Some memory issues. 7. Remote history of CVA, possibly cause of dementia. 8. DJD. PAST SURGICAL HISTORY: Initially he had CVC in his right chest and now has a left upper arm AV fistula. REVIEW OF SYSTEMS: As above, otherwise negative on a 10-point scale. FAMILY HISTORY: No history of dialysis or kidney failure. SOCIAL HISTORY: Continues to smoke ____, almost 30 packs of smoking. Denies alcohol or recreational drugs. PHYSICAL EXAMINATION: GENERAL: Middle-aged gentleman who is somewhat anxious about his issues, but no distress. VITAL SIGNS: Stable. He is afebrile. HEENT: Pupils are reactive. Tongue is midline. NECK: Supple. Conjunctivae are pale. No facial asymmetry. LUNGS: Fairly good air entry. No rhonchi, rales or wheezing. CARDIOVASCULAR: Regular rate and rhythm, slightly tachycardic at times, does have a faint 2/6 ejection systolic murmur. ABDOMEN: Soft. No rebound, guarding or masses. Bowel sounds are active. No obvious hepatosplenomegaly. EXTREMITIES: No edema. NEUROLOGIC: Nonfocal. LABORATORY DATA: Reviewed. IMPRESSION: 1. Profound anemia, cause unclear, possibly GI. We will obtain other records to see the trend of his hemoglobin. Started on some Epogen. 2. End-stage renal disease secondary to type 2 diabetes and hypertension. 3. Hypertension and diabetes with chronic kidney disease. 4. CVA with dementia. PLAN: Did get 1 unit of blood yesterday. Would transfuse 2 more today with dialysis. Monitor labs. Discussed with patient. He is wanting to go home today. Obviously not a good idea. We will follow closely with you. Thank you very much for the consultation. I appreciate the referral. We will follow. RICKI HERRMANN MD DR: ETHEL/kar JOB#: [id number] / [id number]
[2016-08-25 23:15] LABS: FOLIC ACID >19.9 ng/mL (>3.0)
[2016-08-26 03:51] VITALS: BP 112/51
[2016-08-26 07:14] LABS: BASO % 0 % (0-3); EOS % 0 % (0-3); HEMATOCRIT 25.1 % (39.0-53.0); HEMOGLOBIN 8.2 g/dL (13.0-17.5); LYMPH # 0.8 x10^3/uL (1.0-4.8); LYMPH % 14 % (24-48); MEAN CORPUSCULAR HEMOGLOBIN 28 pg (25-35); MEAN CORPUSCULAR HGB CONC 33 g/dL (31-37); MEAN CORPUSCULAR VOLUME 85 fL (79-100); MONO % 8 % (0-9); NEUT % 77 % (31-73); PLATELET COUNT 278 x10^3/uL (140-400); RED BLOOD COUNT 2.97 x10^6/uL (4.30-5.70); RED CELL DISTRIBUTION WIDTH 18.2 % (11.5-14.5); WHITE BLOOD COUNT 5.7 x10^3/uL (4.0-11.0)
[2016-08-26] MEDS: INSULIN ASPART 300 UNITS/3 ML INSULN.PEN SQ SCH ×2 (07:30→12:30)
[2016-08-26 07:32] LABS: CREATININE 5.9 mg/dL (0.7-1.3); GFR 11.4; POTASSIUM 3.7 mmol/L (3.5-5.1)
[2016-08-26 07:33] VITALS: BP 116/50
[2016-08-26] MEDS: SEVELAMER CARBONATE 800 MG TABLET. PO SCH ×2 (08:00→12:00)
[2016-08-26] MEDS: FAMOTIDINE 20 MG TABLET. PO SCH (09:27)
[2016-08-26] MEDS: FOLIC/VIT B COMP W-C (RENAL) TABLET. PO SCH (09:27)
[2016-08-26] MEDS: NICOTINE 21MG PATCH. TD SCH (09:28)
[2016-08-26] MEDS: HYDRALAZINE 25 MG TABLET PO SCH ×2 (09:28→12:25)
[2016-08-26] MEDS: LEVOTHYROXINE 125 MCG TABLET PO SCH (09:28)
[2016-08-26] MEDS: HYDROCHLOROTHIAZIDE 25 MG TABLET PO SCH (09:28)
[2016-08-26 11:01] VITALS: BP 114/52
--- NOTE | 2016-08-26 11:30 | PDOC ---
IM PROGRESS NOTES- Subjective Subjective No pain ,dyspnea. Objective Vitals Vital Signs Date Time Temp Pulse Resp B/P Pulse Ox O2 Delivery O2 Flow Rate FiO2 08/26/16 11:01 97.9 96 16 114/52 99 Room Air 97.9 Input & Output Intake and Output 08/26/16 07:00 Intake Total 1290 ml Balance 1290 ml Intake Oral 840 ml Blood Product IV Normal Saline Flush 450 ml # Voids 2 Physical Exam Physical Exam General appearance - alert,well appearing, and in no distress and oriented to person, place, and time Mental Status - alert, oriented to person, place, and time, affect appropriate to mood Head - normal Chest - clear to auscultation, no wheezes, rales or rhonchi, symmetric air entry Heart - S1 and S2 normal Abdomen - soft, nontender, nondistended, no masses or organomegaly Neurological - alert and oriented Musculoskeletal - no muscular tenderness noted Extremities - no pedal edema Skin - warm and dry Labs Laboratory Tests Test 08/24/16 19:59 08/24/16 20:25 08/24/16 21:49 08/25/16 07:40 White Blood Count 4.6x10^3/uL (4.0-11.0) Red Blood Count 2.00x10^6/uL (4.30-5.70) Hemoglobin 5.3g/dL (13.0-17.5) Hematocrit 16.6% (39.0-53.0) Mean Corpuscular Volume 83fL (79-100) Mean Corpuscular Hemoglobin 26pg (25-35) Mean Corpuscular Hemoglobin Concent 32g/dL (31-37) Red Cell Distribution Width 18.0% (11.5-14.5) Platelet Count 263x10^3/uL (140-400) Neutrophils (%) (Auto) 67% (31-73) Lymphocytes (%) (Auto) 22% (24-48) Monocytes (%) (Auto) 11% (0-9) Eosinophils (%) (Auto) 0% (0-3) Basophils (%) (Auto) 1% (0-3) Neutrophils # (Auto) 3.1x10^3uL (1.8-7.7) Lymphocytes # (Auto) 1.0x10^3/uL (1.0-4.8) Monocytes # (Auto) 0.5x10^3/uL (0.0-1.1) Eosinophils # (Auto) 0.0x10^3/uL (0.0-0.7) Basophils # (Auto) 0.0x10^3/uL (0.0-0.2) Sodium Level 139mmol/L (136-145) Potassium Level 3.7mmol/L (3.5-5.1) Chloride Level 100mmol/L (98-107) Carbon Dioxide Level 30mmol/L (21-32) Anion Gap 9 (6-14) Blood Urea Nitrogen 28mg/dL (8-26) Creatinine 8.2mg/dL (0.7-1.3) Estimated GFR (Cockcroft-Gault) 7.8 Glucose Level 281mg/dL (70-99) Calcium Level 8.3mg/dL (8.5-10.1) Stool Occult Blood Negative (NEG) Glucose (Fingerstick) 212mg/dL (70-99) 253mg/dL (70-99) Test 08/25/16 11:17 08/25/16 12:37 08/25/16 14:00 08/25/16 14:05 Glucose (Fingerstick) 300mg/dL (70-99) 338mg/dL (70-99) Hemoglobin 7.7g/dL (13.0-17.5) 7.0g/dL (13.0-17.5) Hematocrit 23.4% (39.0-53.0) 22.2% (39.0-53.0) White Blood Count 5.7x10^3/uL (4.0-11.0) Red Blood Count 2.60x10^6/uL (4.30-5.70) Mean Corpuscular Volume 85fL (79-100) Mean Corpuscular Hemoglobin 27pg (25-35) Mean Corpuscular Hemoglobin Concent 32g/dL (31-37) Red Cell Distribution Width 17.9% (11.5-14.5) Platelet Count 291x10^3/uL (140-400) Neutrophils (%) (Auto) 78% (31-73) Lymphocytes (%) (Auto) 15% (24-48) Monocytes (%) (Auto) 6% (0-9) Eosinophils (%) (Auto) 0% (0-3) Basophils (%) (Auto) 0% (0-3) Neutrophils # (Auto) 4.5x10^3uL (1.8-7.7) Lymphocytes # (Auto) 0.9x10^3/uL (1.0-4.8) Monocytes # (Auto) 0.4x10^3/uL (0.0-1.1) Eosinophils # (Auto) 0.0x10^3/uL (0.0-0.7) Basophils # (Auto) 0.0x10^3/uL (0.0-0.2) Reticulocyte Count (auto) 1.4% (0.5-2.5) Iron Level 41ug/dL (65-175) Total Iron Binding Capacity 277ug/dL (250-450) Iron Saturation 15% (15-34) Ferritin 83ng/mL (26-388) Vitamin B12 Level 709pg/mL (211-946) Folic Acid (LAB) >19.9ng/mL (>3.0) Test 08/25/16 19:02 08/25/16 21:28 08/26/16 06:40 08/26/16 07:39 Glucose (Fingerstick) 74mg/dL (70-99) 156mg/dL (70-99) 73mg/dL (70-99) White Blood Count 5.7x10^3/uL (4.0-11.0) Red Blood Count 2.97x10^6/uL (4.30-5.70) Hemoglobin 8.2g/dL (13.0-17.5) Hematocrit 25.1% (39.0-53.0) Mean Corpuscular Volume 85fL (79-100) Mean Corpuscular Hemoglobin 28pg (25-35) Mean Corpuscular Hemoglobin Concent 33g/dL (31-37) Red Cell Distribution Width 18.2% (11.5-14.5) Platelet Count 278x10^3/uL (140-400) Neutrophils (%) (Auto) 77% (31-73) Lymphocytes (%) (Auto) 14% (24-48) Monocytes (%) (Auto) 8% (0-9) Eosinophils (%) (Auto) 0% (0-3) Basophils (%) (Auto) 0% (0-3) Neutrophils # (Auto) 4.4x10^3uL (1.8-7.7) Lymphocytes # (Auto) 0.8x10^3/uL (1.0-4.8) Monocytes # (Auto) 0.5x10^3/uL (0.0-1.1) Eosinophils # (Auto) 0.0x10^3/uL (0.0-0.7) Basophils # (Auto) 0.0x10^3/uL (0.0-0.2) Sodium Level 140mmol/L (136-145) Potassium Level 3.7mmol/L (3.5-5.1) Chloride Level 102mmol/L (98-107) Carbon Dioxide Level 30mmol/L (21-32) Anion Gap 8 (6-14) Blood Urea Nitrogen 16mg/dL (8-26) Creatinine 5.9mg/dL (0.7-1.3) Estimated GFR (Cockcroft-Gault) 11.4 Glucose Level 62mg/dL (70-99) Calcium Level 8.0mg/dL (8.5-10.1) Laboratory Tests Test 08/25/16 12:37 08/25/16 14:00 08/25/16 14:05 08/25/16 19:02 Glucose (Fingerstick) 338mg/dL (70-99) 74mg/dL (70-99) Hemoglobin 7.7g/dL (13.0-17.5) 7.0g/dL (13.0-17.5) Hematocrit 23.4% (39.0-53.0) 22.2% (39.0-53.0) White Blood Count 5.7x10^3/uL (4.0-11.0) Red Blood Count 2.60x10^6/uL (4.30-5.70) Mean Corpuscular Volume 85fL (79-100) Mean Corpuscular Hemoglobin 27pg (25-35) Mean Corpuscular Hemoglobin Concent 32g/dL (31-37) Red Cell Distribution Width 17.9% (11.5-14.5) Platelet Count 291x10^3/uL (140-400) Neutrophils (%) (Auto) 78% (31-73) Lymphocytes (%) (Auto) 15% (24-48) Monocytes (%) (Auto) 6% (0-9) Eosinophils (%) (Auto) 0% (0-3) Basophils (%) (Auto) 0% (0-3) Neutrophils # (Auto) 4.5x10^3uL (1.8-7.7) Lymphocytes # (Auto) 0.9x10^3/uL (1.0-4.8) Monocytes # (Auto) 0.4x10^3/uL (0.0-1.1) Eosinophils # (Auto) 0.0x10^3/uL (0.0-0.7) Basophils # (Auto) 0.0x10^3/uL (0.0-0.2) Reticulocyte Count (auto) 1.4% (0.5-2.5) Iron Level 41ug/dL (65-175) Total Iron Binding Capacity 277ug/dL (250-450) Iron Saturation 15% (15-34) Ferritin 83ng/mL (26-388) Vitamin B12 Level 709pg/mL (211-946) Folic Acid (LAB) >19.9ng/mL (>3.0) Test 08/25/16 21:28 08/26/16 06:40 08/26/16 07:39 Glucose (Fingerstick) 156mg/dL (70-99) 73mg/dL (70-99) White Blood Count 5.7x10^3/uL (4.0-11.0) Red Blood Count 2.97x10^6/uL (4.30-5.70) Hemoglobin 8.2g/dL (13.0-17.5) Hematocrit 25.1% (39.0-53.0) Mean Corpuscular Volume 85fL (79-100) Mean Corpuscular Hemoglobin 28pg (25-35) Mean Corpuscular Hemoglobin Concent 33g/dL (31-37) Red Cell Distribution Width 18.2% (11.5-14.5) Platelet Count 278x10^3/uL (140-400) Neutrophils (%) (Auto) 77% (31-73) Lymphocytes (%) (Auto) 14% (24-48) Monocytes (%) (Auto) 8% (0-9) Eosinophils (%) (Auto) 0% (0-3) Basophils (%) (Auto) 0% (0-3) Neutrophils # (Auto) 4.4x10^3uL (1.8-7.7) Lymphocytes # (Auto) 0.8x10^3/uL (1.0-4.8) Monocytes # (Auto) 0.5x10^3/uL (0.0-1.1) Eosinophils # (Auto) 0.0x10^3/uL (0.0-0.7) Basophils # (Auto) 0.0x10^3/uL (0.0-0.2) Sodium Level 140mmol/L (136-145) Potassium Level 3.7mmol/L (3.5-5.1) Chloride Level 102mmol/L (98-107) Carbon Dioxide Level 30mmol/L (21-32) Anion Gap 8 (6-14) Blood Urea Nitrogen 16mg/dL (8-26) Creatinine 5.9mg/dL (0.7-1.3) Estimated GFR (Cockcroft-Gault) 11.4 Glucose Level 62mg/dL (70-99) Calcium Level 8.0mg/dL (8.5-10.1) Meds Current Medications Aspirin ([employer] Aspirin) 325 mg DAILY PO ; Start 08/25/16 at 12:00; Stop at 20:12; Status DC Aspirin ([employer] Aspirin) 325 mg DAILY PO Last administered on 08/25/16 21:32; Start 08/25/16 at 21:00; Stop 08/26/16 at 06:00; Status DC Aspirin ([employer] Aspirin) 325 mg QHS PO ; Start 08/26/16 at 21:00 Atorvastatin Calcium (Lipitor) 40 mg HS PO Last administered on 08/25/16 21:32 ; Start 08/25/16 at 21:00 Cinacalcet (Sensipar) 30 mg DAILYWSUP PO Last administered on 08/25/16 19:32; Start 08/25/16 at 17:00 Famotidine (Pepcid) 20 mg DAILY PO Last administered on 08/26/16 09:27; Start 08/25/16 at 12:00 Folic Acid/ Multivitamins/Vit B12 (Nephro-Curry) 1 tab DAILY PO Last administered on 08/26/16 09:27; Start 08/25/16 at 12:00 Hydralazine HCl (Apresoline) 25 mg TIDWMEALS PO Last administered on 08/26/16 09:28; Start 08/25/16 at 12:00 Hydrochlorothiazide (Hydrodiuril) 25 mg DAILY PO Last administered on 09:28; Start 08/25/16 at 12:00 Info (PHARMACY MONITORING -- do not chart) 1 each PRN DAILY PRN MC SEE COMMENTS ; Start 08/25/16 at 15:00 Info (PHARMACY MONITORING -- do not chart) 1 each PRN DAILY PRN MC SEE COMMENTS ; Start 08/25/16 at 15:00; Status UNV Insulin Aspart (Novolog) Adjust SSI dose to ansley... TIDAC SQ ; Start 08/25/16 at 11:30; Stop 08/25/16 at 11:30; Status DC Insulin Aspart (Novolog) See Protocol TIDAC SQ Last administered on 08/25/16 12:16; Start 08/25/16 at 11:30 Insulin Aspart 4 units 4 units 1X ONCE SQ Last administered on 08/25/16 13:08 ; Start 08/25/16 at 13:00; Stop 08/25/16 at 13:01; Status DC Insulin Detemir (Levemir) 16 units QHS SQ Last administered on 08/25/16 21:36 ; Start 08/25/16 at 21:00 Nicotine (Nicoderm Cq 21mg) 1 patch DAILY TD Last administered on 08/26/16 09: 28; Start 08/25/16 at 12:00 Paricalcitol (Zemplar) 1 mcg 3X/WEEK PO ; Start 08/27/16 at 09:00 Sevelamer Carbonate (Renvela) 800 mg TIDWMEALS PO Last administered on 19:32; Start 08/25/16 at 12:00 Sodium Chloride (Iv Sodium Chloride 0.9% 1000ml Bag) 1,000 ml @ 400 mls/hr Q2H30M PRN IV PATENCY; Start 08/25/16 at 14:56; Stop 08/26/16 at 02:55; Status DC Sodium Chloride (Iv Sodium Chloride 0.9% 1000ml Bag) 1,000 ml @ 1,000 mls/hr Q1H PRN IV hypotension; Start 08/25/16 at 14:56; Stop 08/25/16 at 20:55; Status DC Sodium Chloride (Normal Saline Flush) 10 ml 1X PRN PRN IV AP catheter pack; Start 08/25/16 at 15:00; Stop 08/26/16 at 14:59 Sodium Chloride 10 ml 10 ml 1X PRN PRN IV INTRAOPERATIVE NEURO TECH catheter pack; Start 08/25/16 at 15:00; Stop 08/26/16 at 14:59 Assessment Assessment 1. acute anemia 2. ESRD on HD 3. HTN 4. h/o CVA on Plavix 5. hypothyroid 6. secondary hyperparathyroid 7. DM II insulin care home 8. moderate chronic PCL malnutrition PLAN: acute anemia transfuse 2 unit PRC, 20mg Lasix between Admit Hgb 5.3 consult hematology 08/26 Hb 8.2,ferritin 83,other labs are pending. ESRD continue HD inpatient consult nephrology DM II does not take doses of insulin ordered by Dr. Bernard regularly, he adjust it based on his BS readings FSBS/SSI BS [id number] insulin since yesterday early Levemir 16u at hs with order to allow patient to decrease dose based on BS Novolog SSI with order to allow patient to decrease dose based on BS HTN continue home meds NSVT 3 beat VT resolved spont occasional PVC DVT/GI prophylaxis KEL ambulatory in room without assistance PPI ? Memory loss- CT head- small vessel ischemic changes.No acute problems. Ok to discharge.see on 08/29/15.He can continue outpatient workup for anemia. Discharge Management - 35 minutes. Plan Plan The patient was seen and examined by me. Chart reviewed and plan of care formulated. Discussed with, reviewed and agree with ACCOUNTING MACHINE MECHANIC's notes, plan of care and orders with modifications as necessary. For more details regarding further plans, please refer to the orders. D/w patient and extensively. Patient's memory is getting worse for quite sometime. Check CT Head. RENY HAYES MD Aug 26, 2016 11:30
--- NOTE | 2016-08-26 11:31 | DISCH ---
DISCHARGE INSTRUCTIONS Condition on Discharge Condition on Discharge: Stable Activity After Discharge Activity Instructions for Disc: Resume previous activity Diet after Discharge Diet after Discharge: Renal Dialysis, Diabetic No Calorie Level Checks after Discharge Checks after discharge: Check blood sugar, ac/hs Contacting the DREddie after DC Call your doctor for: Concerns you may have Follow-Up Follow up with: on 08/29/16. RENY HAYES MD Aug 26, 2016 11:31
[2016-08-26] MEDS ORDERED: INSU100I17 SQ (11:36)
[2016-08-26 12:25] VITALS: BP 114/52
--- NOTE | 2016-08-26 16:22 | PDOC ---
Provider Note Provider Note RENAL F/U : ALIZE Doing better No new issues Wants to go home VSS Afebrile Hb > 8 Exam unchanged. Hemodyn stable. OK to DC RICKI HERRMANN MD Aug 26, 2016 16:22
[2016-08-26] MEDS ORDERED: ASPIRIN 325 MG TABLET PO SCH (21:00)
[2016-08-27] MEDS ORDERED: PARICALCITOL 1 MCG CAPSULE PO SCH (09:00)
[2016-08-28 14:31] LABS: ALPHA 1 0.4 g/dL (0.0-0.4); BETA 0.9 g/dL (0.7-1.3); GAMMA 0.8 g/dL (0.4-1.8); M-SPIKE Note: g/dL (Not Observed); PROTEIN TOTAL 6.2 g/dL (6.0-8.5)
[2016-08-28 17:14] LABS: IMMUNOGLOBULIN A 82 mg/dL (61-437); IMMUNOGLOBULIN G 679 mg/dL (700-1600); IMMUNOGLOBULIN M 34 mg/dL (15-143)
== END 2016-08-26 13:20 | disposition home or self-care (01) | DRG 811 ==
LOC: ER 16:53 → 6 SOUTH 20:15
PROVIDERS: ADMIT Internal Medicine; ATTEND Internal Medicine
PROC: 30233N1 Transfusion of Nonautologous Red Blood Cells into Peripheral Vein, Percutaneous Approach (ICD-10-PCS; principal; 2016-08-25)
DX: D64.9 Anemia, unspecified (principal); N18.6 End stage renal disease; I12.0 Hypertensive chronic kidney disease with stage 5 chronic kidney disease or end stage renal disease; N25.81 Secondary hyperparathyroidism of renal origin; E44.0 Moderate protein-calorie malnutrition; D63.1 Anemia in chronic kidney disease; E03.9 Hypothyroidism, unspecified; E11.22 Type 2 diabetes mellitus with diabetic chronic kidney disease; E78.5 Hyperlipidemia, unspecified; F03.90 Unspecified dementia, unspecified severity, without behavioral disturbance, psychotic disturbance, mood disturbance, and anxiety; M19.90 Unspecified osteoarthritis, unspecified site; F17.210 Nicotine dependence, cigarettes, uncomplicated; Z68.22 Body mass index [BMI] 22.0-22.9, adult; Z79.4 Long term (current) use of insulin; Z99.2 Dependence on renal dialysis; I69.398 Other sequelae of cerebral infarction
CPT/HCPCS: 36415; 70450; 80048; 82274; 82607; 82728; 82746; 82947; 83540; 83550; 84165; 85014; 85018; 85027; 85045; 86334; 86850; 86900; 86901; 86920; 96372; 96374; J1815; P9016; 99285-25

== ENCOUNTER 2017-06-14 17:04 | Emergency (ER) | payer OTHER ==
[~2017-06-14] VITALS: Ht 167.6 cm; Wt 61.2 kg
[~2017-06-14 17:04] MED LIST: AMLO10TA2 MT; ASPI325T8 PO; ATOR40TA59 PO; CINA30TA2 MT; CLOP75TA MT; FOLI0.8T21 MT; HYDR-2868 PO; HYDR25TA9 MT; INSU100C4 SQ; INSU100I17 SQ; INSU100V13 SQ; LEVO125T5 PO; METO25TA4 PO; PARI1CAP PO; SEVE800T9 MT
[2017-06-14 17:27] VITALS: BP 123/58
--- NOTE | 2017-06-14 17:55 | PHYS DOC ---
Past Medical History Past Medical History: Anemia, Diabetes-Type II, High Cholesterol, Hypertension , Hypothyroid, Renal Failure Additional Past Medical Histor: ESRD on HD Past Surgical History: Other Additional Past Surgical Histo: HD PORT PLACEMENT, L ARM HD SHUNT Alcohol Use: None Drug Use: None Adult General Chief Complaint Chief Complaint: SUTURE/STAPLE REMOVAL [facility] HPI Patient is a 71 year old male presents to the emergency department stating that he was hospitalized back in May. He had his dialysis catheter in his left forearm open up due to clots. He states that the has sutures remaining in place and is here to have them removed. Patient is unsure what day they were placed in. He states he was not provided any discharge instructions from the hospital when he was discharged. Patient denies any redness warmth tenderness or any discharge coming from the area. Patient then states that he has been having increased swelling and pain in his left lower leg. Patient denies any shortness of air difficulty breathing or any chest pain and discomfort. Review of Systems Review of Systems Constitutional: Denies fever or chills [] Eyes: Denies change in visual acuity, redness, or eye pain [] HENT: Denies nasal congestion or sore throat [] Respiratory: Denies cough or shortness of breath [] Cardiovascular: No additional information not addressed in HPI [] GI: Denies abdominal pain, nausea, vomiting, bloody stools or diarrhea [] : Denies dysuria or hematuria [] Musculoskeletal: Denies back pain. Complaint of left lower leg pain and discomfort with swelling] Integument: Denies rash or skin lesions. Presents for suture removal Neurologic: Denies headache, focal weakness or sensory changes [] Endocrine: Denies polyuria or polydipsia [] All other systems were reviewed and found to be within normal limits, except as documented in this note. Allergies Allergies Allergies Coded Allergies Type Severity Reaction Last Updated Verified No Known Drug Allergies 05/24/17 No Physical Exam Physical Exam Constitutional: Well developed, well nourished, no acute distress, non-toxic appearance. [] HENT: Normocephalic, atraumatic, bilateral external ears normal, oropharynx moist, no oral exudates, nose normal. [] Eyes: PERRLA, EOMI, conjunctiva normal, no discharge. [] Neck: Normal range of motion, no tenderness, supple, no stridor. [] Cardiovascular:Heart rate regular rhythm Lungs & Thorax: No respiratory distress noted Skin: Warm, dry, no erythema, no rash. Patient with 1 external suture noted in the left forearm area dialysis catheter with a good bruit noted. No drainage or discharge noted around the area and no redness noted. Extremities: Left lower leg tenderness, no cyanosis, no clubbing, ROM intact, no edema. Positive Homans sign 2+ pitting edema noted to the lower foot. Cap refill brisk less than 2 seconds peripheral pulses 2+. Patient does have significant swelling noted at the into the mid lower leg. Neurologic: Alert and oriented X 3, normal motor function, normal sensory function, no focal deficits noted. [] Psychologic: Affect normal, judgement normal, mood normal. [] Current Patient Data Vital Signs Vital Signs Date Time Temp Pulse Resp B/P (MAP) Pulse Ox O2 Delivery O2 Flow Rate FiO2 06/14/17 17:27 98.2 86 18 123/58 (79) 95 Room Air 98.2 EKG EKG [] Radiology/Procedures Radiology/Procedures [][facility] [address] [place] [address] IMAGING REPORT Signed PATIENT: KARLENE HUI ACCOUNT: [id number] : 1945 LOCATION: ER AGE: 71 SEX: M EXAM STATUS: REG ER ORD. PHYSICIAN: STANLEY RODRIGUEZ APRN REASON: swelling and leg pain, hx of dialysis patient PROCEDURE: VENOUS LOWER EXTREMITY LEFT Left lower extremity venous duplex study 06/14/2017 Clinical History: Left leg pain and swelling. Technique: Using a combination of real time ultrasound imaging and color-flow and pulse Doppler imaging techniques along with graded compression and augmentation, duplex evaluation of the deep venous system of the left lower extremity was performed. Multiple images were obtained. Findings: There is no sonographic evidence of deep venous thrombosis involving the visualized deep venous structures of left lower extremity. Impression: Negative study. Electronically signed by: Reji Romero MD (06/14/2017 6:46 PM) [facility] DICTATED and SIGNED BY: REJI ROMERO MD DATE: 06/14/17 1118 CC: [facility]; STANLEY RODRIGUEZ APRN ~ Course & Med Decision Making Course & Med Decision Making Pertinent Labs and Imaging studies reviewed. (See chart for details) Ultrasound was negative for any DVTs. Patient will be treated as a cellulitis due to some redness noted on the top of the foot as well as swelling. Patient is a dialysis patient therefore 500 mg of Keflex on a daily basis with recommendations to take the Keflex after dialysis. Patient will be encouraged to follow up with a primary care physician in the next 3-5 days. Patient will also be provided with the phone number for outpatient scheduling to follow-up for suture removal from his dialysis catheter declot. Patient was provided with discharge instructions with recommendations to keep the left leg elevated as much as possible. Provided with signs and symptoms to return back to the emergency department. All questions and concerns have been answered at patient' s bedside. Parent agrees with discharge instructions curvature regimens and follow-up recommendations. [] Dragon Disclaimer Dragon Disclaimer This electronic medical record was generated, in whole or in part, using a voice recognition dictation system. Departure Departure Impression: Primary Impression: Cellulitis of left foot Disposition: 01 HOME, SELF-CARE Condition: STABLE Referrals: GIL[facility]ILLA (PCP) Patient Instructions: Cellulitis, [id number] Additional Instructions: Activity as tolerated Medication as prescribed Tylenol as needed for pain and discomfort Elevation of the left lower leg Warm moist packs to the left foot Followup with your primary care provider in 3-5 days Return to emergency department as needed for signs and symptoms that become worse. Call for your outpatient followup for suture removal at [phone] Scripts Cephalexin (CEPHALEXIN) 500 Mg Tablet 1 TAB PO DAILY, #10 TAB Prov: STANLEY RODRIGUEZ APRN 06/14/17 STANLEY RODRIGUEZ APRN Jun 14, 2017 17:55
--- NOTE | 2017-06-14 18:49 | RAD ---
Left lower extremity venous duplex study 06/14/2017 Clinical History: Left leg pain and swelling. Technique: Using a combination of real time ultrasound imaging and color-flow and pulse Doppler imaging techniques along with graded compression and augmentation, duplex evaluation of the deep venous system of the left lower extremity was performed. Multiple images were obtained. Findings: There is no sonographic evidence of deep venous thrombosis involving the visualized deep venous structures of left lower extremity. Impression: Negative study. Electronically signed by: Reji Romero MD (06/14/2017 6:46 PM) [facility]
[2017-06-14] MEDS ORDERED: CEPH500T PO (18:58)
== END 2017-06-14 19:05 | disposition home or self-care (01) ==
LOC: ER 17:04
DX: L03.116 Cellulitis of left lower limb (principal); I12.0 Hypertensive chronic kidney disease with stage 5 chronic kidney disease or end stage renal disease; E11.22 Type 2 diabetes mellitus with diabetic chronic kidney disease; N18.6 End stage renal disease; E78.00 Pure hypercholesterolemia, unspecified; E03.9 Hypothyroidism, unspecified; Z99.2 Dependence on renal dialysis
CPT/HCPCS: 93971; 99284-25